=== PATIENT | male | born 1930 | race Caucasian/White ===

== ENCOUNTER 2017-01-07 10:41 | Emergency (ER) | payer OTHER ==
[~2017-01-07] VITALS: Ht 182.9 cm; Wt 89.4 kg
[2017-01-07] MEDS ORDERED: HYDROmorphone 2 MG/ML VIAL IV ONE (12:15)
[2017-01-07 12:20] VITALS: BP 102/60
--- NOTE | 2017-01-07 12:30 | RAD ---
Indication injury, pain. Internally and externally rotated views of the right shoulder were obtained as well as a Y view. There is considerable offset at the AC joint compatible with an AC tear the chronicity of which is uncertain. The finding does appear to be new relative to an examination June 01, 2010. There are several right rib fractures which appear old an acute bony finding is not seen. IMPRESSION: No acute bony finding seen. Findings compatible with an AC tear, the chronicity of which is uncertain
[2017-01-07] MEDS ORDERED: IBUP-1060 PO (12:56)
--- NOTE | 2017-01-07 12:56 | PHYS DOC ---
Past Medical History Past Medical History: Hypertension Past Surgical History: No Surgical History Alcohol Use: None Drug Use: None Adult General Chief Complaint Chief Complaint: SHOULDER INJURY HPI HPI Patient is a 86 year old M who presents with right shoulder pain. Patient states he slipped and fell and landed on his right shoulder and believes is dislocated. In the emergency room patient has his arm abducted across his chest and states it hurts to move in any other position. Patient states he sustained no other injuries. Patient states he had no loss of consciousness. Patient has no other complaints. Review of Systems Review of Systems GEN: Denies fevers, chills, sweats HEENT: Denies blurred vision, sore throat CV: Denies chest pain RESP: Denies shortness of air, cough GI: Denies n/v/d NEURO: Denies confusion, dizziness MSK: Right shoulder pain Current Medications Current Medications Current Medications Medications (Trade) Dose Ordered Sig/Cornel Start Time Stop Time Status Last Admin Dose Admin Hydromorphone HCl (Dilaudid) 1 mg 1X ONCE 01/07/17 12:15 01/07/17 12:16 DC 01/07/17 12:03 1 MG Allergies Allergies Allergies Coded Allergies Type Severity Reaction Last Updated Verified No Known Drug Allergies 01/07/17 No Physical Exam Physical Exam GEN.: No apparent distress. Alert and oriented. HEENT: Head is normocephalic, atraumatic NECK: Supple. LUNGS: CTAB. HEART: RRR, S1, S2 present. Peripheral pulses intact ABDOMEN: Soft, nontender. Positive bowel sounds. EXTREMITIES: Without any cyanosis, positive tender to palpation over the right AC joint, positive sensation to the lateral deltoid on the right, no tender to palpation to the right elbow or right wrist, +2 radial pulse on the right, capillary refill less than 2 seconds on the right hand NEUROLOGIC: Normal speech, normal tone PSYCHIATRIC: Normal affect, normal mood. SKIN: No ulcerations Current Patient Data Vital Signs Vital Signs Date Time Temp Pulse Resp B/P (MAP) Pulse Ox O2 Delivery O2 Flow Rate FiO2 01/07/17 12:20 53 102/60 (74) Room Air 01/07/17 12:03 18 96 01/07/17 10:41 97.9 97.9 EKG EKG [] Radiology/Procedures Radiology/Procedures X-ray of the right shoulder shows no dislocation and AC tear[] Course & Med Decision Making Course & Med Decision Making Pertinent Labs and Imaging studies reviewed. (See chart for details) ED course: Patient was seen and examined emergency room x-rays right shoulder was ordered Patient was updated and reevaluated after x-ray was done and discussed the management of an before meals tear. Recommended short-term follow up his PCP and the possible need for physical therapy and a referral to orthopedics. MDM: After reviewing the chart, CC/HPI/PMH, physical exam, [radiological results], I do not believe the patient sustained a significant injury to the right shoulder warranting further workup and/or admission at this time. Patient sustained an AC joint tear but can manage his outpatient. Recommended patient follow-up with PCP and possible orthopedics if needed. Recommended physical therapy and over- the-counter pain management. Patient was comfortable being discharged home. Additional verbal discharge instructions were provided to the patient and that if symptoms get worse or any new symptoms arise that are worrisome to the patient he is to return to the emergency room immediately [] Dragon Disclaimer Dragon Disclaimer This electronic medical record was generated, in whole or in part, using a voice recognition dictation system. Departure Departure Impression: Primary Impression: AC separation, type 2 Disposition: 01 HOME, SELF-CARE Condition: IMPROVED Referrals: MICHAEL ROMERO DO (PCP) Patient Instructions: Acromioclavicular Separation with [facility]hab[facility] Additional Instructions: Please follow up with your family doctor in the next one to 2 days Scripts Ibuprofen (IBUPROFEN) 800 Mg Tablet 800 MG PO PRN Q8HRS Y for INFLAMMATION for 10 Days, #30 TAB Prov: NIMA TINAJERO DO 01/07/17 NIMA TINAJERO DO Jan 07, 2017 12:56
== END 2017-01-07 13:10 | disposition home or self-care (01) ==
LOC: ER 10:41
DX: S43.101A Unspecified dislocation of right acromioclavicular joint, initial encounter (principal); I10 Essential (primary) hypertension; W01.0XXA Fall on same level from slipping, tripping and stumbling without subsequent striking against object, initial encounter; Y93.89 Activity, other specified; Y92.89 Other specified places as the place of occurrence of the external cause; Y99.8 Other external cause status
CPT/HCPCS: 73030; 96374; 99284; J1170